=== PATIENT | male | born 1965 | race Caucasian/White ===

== ENCOUNTER 2018-04-05 20:36 | Inpatient (IN) | payer OTHER ==
[~2018-04-05] VITALS: Ht 172.7 cm; Wt 62.3 kg
--- NOTE | 2018-04-05 20:36 | NUR ---
BB FRIEND C/C INGUINAL HERNIA X5 YEARS, WORSE IN PAST 2 DAYS. PAIN 5/10. VSS NAD A/OX4 ABLE TO MAKE NEEDS KNOWN. WILL CONTINUE TO MONITOR FOR ANY CHANGES DURING THE SHIFT.
[2018-04-05] MEDS ORDERED: IV NS 0.9% 1,000 ML BAG IV ONE (21:00)
[2018-04-05] MEDS ORDERED: ONDANSETRON HCL/PF 4 MG/2 ML VIAL IVP ONE (21:00)
[2018-04-05] MEDS ORDERED: MORPHINE SULFATE INJ 2 MG/ML DISP.SYRIN IV ONE (21:00)
[2018-04-05] MEDS ORDERED: ONDANSETRON HCL/PF 4 MG/2 ML VIAL ONE (21:06)
[2018-04-05 21:07] LABS: BASOPHILS % (AUTO) 0.6 % (0.0-2.0); EOSINOPHILS % (AUTO) 2.2 % (0.0-6.0); HEMATOCRIT 44 % (39-51); HEMOGLOBIN 14.8 g/dL (13.5-17.5); LYMPHOCYTES # (AUTO) 1.7 /CMM (0.8-4.8); LYMPHOCYTES % (AUTO) 36.3 % (20.0-44.0); MEAN CORPUSCULAR HGB CONC 34 g/dl (31.0-36.0); MEAN CORPUSCULAR VOLUME 88 fL (80-96); MONOCYTES # (AUTO) 0.6 /CMM (0.1-1.30); MONOCYTES % (AUTO) 13.6 % (2.0-12.0); NEUTROPHILS # (AUTO) 2.2 /CMM (1.8-8.9); NEUTROPHILS % (AUTO) 47.3 % (43.0-81.0); PLATELET COUNT (AUTO) 177 /CMM (150-450); RDW COEFFICIENT OF VARIATION 12.9 (11.5-15.0); RED BLOOD CELL COUNT(AUTO) 4.96 MIL/uL (4.5-6.0); WHITE BLOOD COUNT (AUTO) 4.6 K/uL (4.3-11.0)
[2018-04-05] MEDS ORDERED: MORPHINE SULFATE INJ 4 MG/ML DISP.SYRIN ONE (21:07)
--- NOTE | 2018-04-05 21:09 | NUR ---
RISK MANAGEMENT INTERN PICKED UP BLOOD SAMPLES
--- NOTE | 2018-04-05 21:10 | NUR ---
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
[2018-04-05 21:21] LABS: INR 0.95 (0.85-1.15)
[2018-04-05 21:23] LABS: ALBUMIN 3.4 g/dL (3.4-5.0); BILIRUBIN,DIRECT 0.1 mg/dL (0.0-0.2); BILIRUBIN,TOTAL 0.4 mg/dL (0.2-1.0); CALCIUM, SERUM 8.9 mg/dL (8.5-10.1); CREATININE 0.8 mg/dL (0.6-1.3)
[2018-04-05] MEDS ORDERED: ONDANSETRON 4 MG TAB.RAPDIS ONE (21:58)
[2018-04-05] MEDS ORDERED: IV D5/0.45 NACL 1,000 ML IV PRN (22:45)
--- NOTE | 2018-04-05 22:50 | NUR ---
REPORT GIVEN TO ERNESTINE
[2018-04-05 23:00] VITALS: BP 134/93
[2018-04-05] MEDS ORDERED: ONDANSETRON HCL/PF 4 MG/2 ML VIAL IVP PRN (23:00)
[2018-04-05] MEDS ORDERED: MORPHINE SULFATE INJ 2 MG/ML DISP.SYRIN IV PRN (23:00)
[2018-04-05] MEDS ORDERED: HYDROCODONE/APAP 5/325MG 1 EACH TABLET PO PRN (23:00)
[2018-04-05] MEDS ORDERED: Z GUARD REMEDY 2 OZ OINT TP PRN (23:00)
[2018-04-05] MEDS ORDERED: ACETAMINOPHEN 325 MG TABLET PO PRN (23:00)
[2018-04-05] MEDS ORDERED: MAGNESIUM HYDROXIDE 30 ML UDC PO PRN (23:00)
[2018-04-05] MEDS ORDERED: MAG HYDROX/AL HYDROX/SIMETH 30 ML UDC PO PRN (23:00)
--- NOTE | 2018-04-05 23:00 | NUR ---
MS RN OPENING NOTES: RECEIVED PT FROM ED. PT ON ROOM AIR AND TOLERATING WELL. PT IS A/OX3. PT INFORMED THAT AWAITING FOR ORDERS FOR NOW. PT HAS IV ON R AC #18G AND IS PATENT AND INTACT. CURRENTLY S/L. CALL LIGHT WITHIN PT'S REACH. BED KEPT IN LOW, LOCKED POSITION, AND SIDE RAILS X 2UP. WILL CONTINUE TO MONITOR PT.
--- NOTE | 2018-04-06 06:37 | NUR ---
MS RN CLOSING NOTES: ALL NEEDS WERE ATTENDED AND ANTICIPATED FOR. PT ASLEEP AT THIS TIME. PT HAS BEEN NPO SINCE ADMISSION. PT HAS IV ON R AC #18G AND IS BEING INFUSED WITH IV D51/2 NS AT 50ML/HR. PT ON ROOM AIR. CALL LIGHT WITHIN PT'S REACH. BED KEPT IN LOW, LOCKED POSITION, AND SIDE RAILS X 2UP. WILL ENDORSE TO AM NURSE FOR NAEL.
[2018-04-06 07:11] LABS: BASOPHILS % (AUTO) 0.8 % (0.0-2.0); EOSINOPHILS % (AUTO) 2.6 % (0.0-6.0); HEMATOCRIT 45 % (39-51); HEMOGLOBIN 15.2 g/dL (13.5-17.5); LYMPHOCYTES # (AUTO) 1.4 /CMM (0.8-4.8); LYMPHOCYTES % (AUTO) 32.1 % (20.0-44.0); MEAN CORPUSCULAR HGB CONC 34 g/dl (31.0-36.0); MEAN CORPUSCULAR VOLUME 90 fL (80-96); MONOCYTES # (AUTO) 0.5 /CMM (0.1-1.30); MONOCYTES % (AUTO) 11.2 % (2.0-12.0); NEUTROPHILS # (AUTO) 2.4 /CMM (1.8-8.9); NEUTROPHILS % (AUTO) 53.3 % (43.0-81.0); PLATELET COUNT (AUTO) 161 /CMM (150-450); RDW COEFFICIENT OF VARIATION 14.1 (11.5-15.0); RED BLOOD CELL COUNT(AUTO) 4.95 MIL/uL (4.5-6.0); WHITE BLOOD COUNT (AUTO) 4.4 K/uL (4.3-11.0)
--- NOTE | 2018-04-06 07:20 | NUR ---
RN NOTES PATIENT A/OX3, FRIEND AT BEDSIDE, PT IN ROOM AIR AND TOLERATING WELL. PT HAS IV ON R AC #18G AND IS PATENT AND INTACT, ON D5 1/2NS AT 50ML/HR. PATIENT NPO AT THIS TIME FOR SMALL BOWEL THROUGH. PATIENT DENIES PAIN AT THIS TIME, CALL LIGHT WITHIN REACH. BED KEPT IN LOW, LOCKED POSITION, AND SIDE RAILS X 2UP. WILL CONTINUE TO MONITOR.
[2018-04-06 07:25] LABS: INR 0.99 (0.87-1.13)
[2018-04-06 07:32] LABS: CALCIUM, SERUM 8.2 mg/dL (8.5-10.1); CREATININE 0.7 mg/dL (0.6-1.3); MAGNESIUM 2.1 mg/dL (1.8-2.4); PHOSPHORUS 2.6 mg/dL (2.5-4.9); POTASSIUM 3.6 mmol/L (3.5-5.1)
[2018-04-06 07:43] LABS: THYROID STIMULATING HORMONE 1.824 uIU/mL (0.358-3.74)
[2018-04-06 08:46] VITALS: BP 127/81
[2018-04-06] MEDS ORDERED: PANTOPRAZOLE 40 MG VIAL IV SCH (09:00)
--- NOTE | 2018-04-06 13:29 | NUR ---
RN NOTES XR SMALL BOWEL FOLLOW THROUGH RESULT, RELAYED TO DR. SALAS. RECEIVED ORDER TO START PATIENT ON CLEAR LIQUID DIET, AND ADVANCE DIET TOLERATED. DR. MCFARLAND'S WINDOWS VMWARE ENGINEER PHOEBE MADE AWARE OF RESULT ALSO.
[2018-04-06 15:27] VITALS: BP 124/83
--- NOTE | 2018-04-06 15:28 | NUR ---
SAND SLINGER OPERATOR NOTES PATIENT IS CLEARED BY DR. MCFARLAND AND DR. SALAS, RECEIVED ORDER FOR DISCHARGE. PATIENT A/OX4, VERBALLY RESPONSIVE, BREATHING EVEN AND UNLABORED, NO SOB NOTED, PATIENT RECEIVED DISCHARGE INSTRUCTIONS AND VERBALIZED UNDERSTANDING. DISCHARGE PAPERWORKS SIGNED. PERIPHERAL IV REMOVED BY THE PATIENT. NO BLEEDING NOTED. SKIN ASSESSMENT COMPLETED, NO CHANGES, SKIN DRY AND INTACT. PATIENT'S NEEDS ATTENDED. TOLERATED REGULAR DIET. PATIENT WILL FOLLOW UP WITH DR. MCFARLAND OUTPATIENT FOR THE HERNIA REPAIR. PATIENT IS WAITING FOR TRANSPORTATION.
--- NOTE | 2018-04-06 16:21 | NUR ---
INVESTIGATIVE RESEARCH SPECIALIST NOTE PATIENT LEFT THE FACILITY IN NO DISTRESS, PICKED UP BY FRIEND.
== END 2018-04-06 16:19 | disposition home or self-care (01) | DRG 254 ==
LOC: ER 20:48 → MED 22:35
PROVIDERS: ADMIT Registered Nurse; ATTEND Registered Nurse
DX: K40.90 Unilateral inguinal hernia, without obstruction or gangrene, not specified as recurrent (principal); E83.51 Hypocalcemia; F12.90 Cannabis use, unspecified, uncomplicated; Z72.0 Tobacco use; Z82.49 Family history of ischemic heart disease and other diseases of the circulatory system
CPT/HCPCS: 36415; 71045-TC; 74250-TC; 80048-TC; 80061-TC; 80076-TC; 83735-TC; 84100-TC; 84443-TC; 85025-TC; 85610-TC; 85730-TC; 87081-TC; A4606; C9113; J2270; J2405; J3490; Q0162; Z7610